=== PATIENT | male | born 1960 | race Caucasian/White ===

== ENCOUNTER 2016-09-28 09:52 | Inpatient (IN) | payer OTHER ==
--- NOTE | 2016-09-17 10:02 | Rehab Joint Replacement Pre-Op ---
Rehab Joint Replacement Pre-Op - Pre-Op Visit Reviewed Items Scheduled for Post Op Visit: Yes Scheduled Post Op Visit Date: 09/28/16 (IP day of surgery and day after schedule , OP PT schedule [facility].) Pre-Op Visit Comment: Pt. lives in a ranch-style home with basement, however, pt. reports he will remain on the main floor for ADLs. Pt. has ~5 steps leading to the first platform and an additional 5 steps leading into the home with handrail on left side when ascending. Pt. wishes to ambulate with his single point cane, however, is considering a front wheeled walker for stability; pt. was instructed to use walker to aid in shower transfer. Pt. has to step over a shower structure measuring ~5 inches vertically before standing in his shower. Pt. has a countertop next to the toilet to aid with transfer, but does not have a raised toilet seat. 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 Pt. has a and three kids at home who are able to provide support. Yuriy Hose/Garment Measurement TKR - Knee High: Yes Yuriy Hose/Garment Measure THR - Thigh High: Yes (11.5 inches ankle circumference ; 16.5 inches calf circumference; 28.25 thigh circumference; 30.25 leg length. Measurements recorded in inches.) Exercise Reviewed: Yes (Pt. instructed to perform ankle pumps, quad sets, glute sets, heel slides, and SLR. Pt. instructed to avoid precautions for posterior approach.) Stair Climbing: Yes (Pt. instructed to ascend and descend steps with front wheeled walker and single point cane, leading with the non-operative LE when ascending and operative LE when descending.) Cane/Walker/Crutch Training: Yes Vend Equipment - Cane or Walker and OT Kit: N/A (Pt. given vendor list for areas supplying DME.) List of Venders in the Area: Yes Shower Chair Transfers: Yes Car Transfers: Yes Bed Transfers: Yes Medical History Forms Issued: No Functional Scale Forms Issued: No
[~2016-09-28 09:52] MED LIST: ACETAMINOPHEN 1000MG/100 ML PREMIX IV ONE; CELECOXIB 100 MG CAPSULE PO ONE; FAMOTIDINE 20MG TABLET PO ONE; MECLIZINE 25 MG TABLET PO ONE; METOCLOPRAMIDE 10 MG TABLET PO ONE; VANCOMYCIN HCL 1,000 MG in 0.9 % SODIUM CHLORIDE 250ML 250 ML IVPB ONE
[2016-09-28] MEDS ORDERED: BUPIVACAINE 0.5% W/EPI MPF 30 ML VIAL IVP ONE ×2 (12:17→14:00)
[2016-09-28] MEDS ORDERED: VANCOMYCIN HCL 1 GM VIAL IVPB ONE ×2 (12:17→14:00)
[2016-09-28] MEDS ORDERED: TRANEXAMIC ACID 1,000 MG/10 ML ML IV ONE ×2 (12:17→14:00)
[2016-09-28] MEDS ORDERED: BUPIVACAINE LIPOSOME 266MG/20ML VIAL IV ONE (12:17)
[2016-09-28 13:04] LABS: ABO GROUP O; ANTIBODY SCREEN NEGATIVE (NEGATIVE); RH TYPE POSITIVE
[2016-09-28] MEDS ORDERED: PROPOFOL 10 MG/ML VIAL IV ONE (14:00)
[2016-09-28] MEDS ORDERED: EPHEDRINE SULFATE 50 MG/ML ML IV ONE (14:00)
[2016-09-28] MEDS ORDERED: MIDAZOLAM HCL 2MG/2ML VIAL IV ONE (14:00)
[2016-09-28] MEDS ORDERED: KETOROLAC 30 MG/ML VIAL IVP ONE (14:00)
[2016-09-28] MEDS ORDERED: FENTANYL PF 100MCG/2ML VIAL IV ONE (14:00)
[2016-09-28] MEDS ORDERED: *PACU ONLY* KETAMINE HCL 10 MG/ML (20ML) VIAL IV ONE (14:00)
[2016-09-28] MEDS ORDERED: HYDROMORPHONE HCL 1 MG/ML CPJ IM PRN (14:24)
[2016-09-28] MEDS ORDERED: MORPHINE SULFATE 5 MG/ML PFS IVP PRN ×4 (14:24)
[2016-09-28] MEDS ORDERED: HYDROCODONE/APAP 7.5/325MG TABLET PO PRN (14:24)
[2016-09-28] MEDS ORDERED: ZOLPIDEM TARTRATE 5 MG TABLET PO PRN (14:24)
[2016-09-28] MEDS ORDERED: DIPHENHYDRAMINE HCL 25 MG CAPSULE PO PRN (14:24)
[2016-09-28] MEDS ORDERED: MAGNESIUM HYDROXIDE 30 ML UDC PO PRN (14:24)
[2016-09-28] MEDS ORDERED: PROMETHAZINE HCL 12.5 MG in 0.9 % SODIUM CHLORIDE 100ML 50 ML IVPB PRN (14:24)
[2016-09-28] MEDS ORDERED: TRAMADOL HCL 50 MG TABLET PO PRN ×2 (14:24)
[2016-09-28] MEDS ORDERED: NALOXONE 0.4 MG/1 ML VIAL IVP PRN (14:24)
[2016-09-28] MEDS ORDERED: HYDROMORPHONE HCL 2 MG/ML VIAL IM PRN (14:24)
[2016-09-28] MEDS ORDERED: DEXTROSE 5 % AND 0.9 % NACL 1,000 ML IV PRN (14:24)
[2016-09-28] MEDS ORDERED: HYDROCODONE/APAP 5/325MG TABLET PO PRN ×2 (14:24)
[2016-09-28] MEDS ORDERED: BISACODYL 10 MG SUPP RC PRN (14:24)
[2016-09-28] MEDS ORDERED: ONDANSETRON HCL IV 4 MG/2 ML VIAL IVP PRN (14:24)
[2016-09-28] MEDS ORDERED: ACETAMINOPHEN W/ CODEINE 300MG/30MG TABLET PO PRN ×2 (14:24)
[2016-09-28] MEDS ORDERED: METOCLOPRAMIDE HCL 10 MG/2 ML VIAL IVP PRN (14:24)
[2016-09-28] MEDS ORDERED: ACETAMINOPHEN 325 MG TAB PO PRN (14:24)
[2016-09-28] MEDS ORDERED: AL HYDROX/MAG HYDROX 30ML UD PO PRN (14:24)
[2016-09-28] MEDS ORDERED: KETOROLAC 30 MG/ML VIAL IVP PRN ×2 (14:24)
[2016-09-28] MEDS ORDERED: ACETAMINOPHEN W/ CODEINE 300MG/60MG TABLET PO PRN ×2 (14:24)
[2016-09-28] MEDS: HYDROCODONE/APAP 7.5/325MG TABLET PO PRN (20:19)
[2016-09-28] MEDS: FERROUS SULFATE 325 MG TAB PO SCH (21:13)
[2016-09-28] MEDS: DOCUSATE SODIUM 100 MG CAPSULE PO SCH (21:13)
[2016-09-28] MEDS: RANITIDINE HCL 150 MG TABLET PO SCH (21:13)
[2016-09-28] MEDS ORDERED: SIMVASTATIN 20 MG TABLET PO SCH (22:00)
[2016-09-29] MEDS: VANCOMYCIN HCL 1 MG in 0.9 % SODIUM CHLORIDE 250ML 250 ML IVPB SCH ×2 (01:19→13:46)
[2016-09-29] MEDS: HYDROCODONE/APAP 7.5/325MG TABLET PO PRN ×2 (04:38→09:36)
[2016-09-29 06:23] LABS: HEMATOCRIT 37.2 % (42.0-52.0); HEMOGLOBIN 12.4 gm/dl (14.0-18.0)
[2016-09-29] MEDS ORDERED: PATIENT OWN MED: RANITIDINE 150 MG PO SCH (07:30)
[2016-09-29] MEDS: DOCUSATE SODIUM 100 MG CAPSULE PO SCH (09:40)
[2016-09-29] MEDS: RANITIDINE HCL 150 MG TABLET PO SCH (09:43)
[2016-09-29] MEDS: FERROUS SULFATE 325 MG TAB PO SCH (09:48)
[2016-09-29] MEDS ORDERED: RIVAROXABAN 10 MG TABLET PO SCH (10:00)
[2016-09-29] MEDS ORDERED: PATIENT OWN MED: LISINOPRIL 10 MG PO SCH (10:00)
[2016-09-29] MEDS ORDERED: CELECOXIB 100 MG CAPSULE PO SCH (10:00)
--- NOTE | 2016-09-29 10:49 | Rehab Evaluation ---
Patient Information - Patient Information Diagnosis: OA with left DUNIA Ordered Treatment: PT Evaluate and Treat Status: Initial Evaluation Surgery: Yes Date of Surgery: 09/28/16 (left DUNIA) Past Medical/Surgical Hx: PAST MEDICAL/SURGICAL HISTORY Past Surgical History left knee scopes x's 3 c scope and EGD PMH - Respiratory Hx Respiratory Disorders No PMH - Cardiovascular Hx Cardiovascular Disorders Yes Hx Hypertension Yes: good control on meds Exercise Tolerance Good PMH - Neuro Hx Neurological Disorders Yes PMH - GI Hx Gastrointestinal Disorders Yes Hx Gastroesophageal Reflux Yes: controlled with meds PMH - Hx Genitourinary Disorders Yes Patient Hx Prostate Problems Yes: enlarged on meds PMH - Endocrine Hx Endocrine Disorders No PMH - Musculoskeletal Hx Musculoskeletal Disorders Yes Hx Arthritis Yes: left hip and back PMH - Psych Hx Psychiatric Problems No PMH - Hematology/Oncology Hx Hematology/Oncology No Disorders Precautions: [place], Fall - Time With Patient Total Time Spent With Patient (Min): 30 Treatment Procedures: Detail (Patient seen in room, sitting up in bed. Prepared new walker for him to take home: FWW set at proper height. Reviewed exercises for hip: heel slides with assist, SLR with assist, quad, glut and hamstring sets, ankle pumps. Patient needed some assist to pivot around out of bed with left LE and assist to gently lower to floor. Sit to stand independently and made sure new walker right height then ambulated WBAT with FWW 50 feet or so, able to walk down 3 steps, back up three steps with FWW folded and rail. Has rail at home and cane to do stairs because has 10 steps at home with split staircase to get into house. Patient ambulated 100 feet further with FWW WBAT then back to room for about 200 feet or more this am.) Subjective Information - Subjective Information Per Patient (Patient lives in ranch style house with and three teen-agers. Retired some years ago and has been involved with sons' sports.) Objective Data - Pain Pain Present: Yes Pain Intensity: 2 Pain Scale Used: Numeric (1 - 10) (2/10 with meds) - Mental Status Patient Orientation: Oriented x3 - Visual Perception Appears within normal limits for therapeutic activities - ROM Within normal limits (except hip left which is impaired a little since surgery: hip flexion 60 degrees, abduction 20 degrees, ER minimal, IR, add and extension neutral. Left knee and ankle WFL) - Strength/Tone Within normal limits (Except left hip 3-/5) - Coordination Appears within normal limits for therapeutic activities - Bed Mobility Needs Assist (Needs assist to lift and let leg down off bed.) - Transfers Independent (Able to sit to stand independently and transfer independently.) - Balance Balance Sitting: Good Balance Standing: Good - Sensation Intact - Gait Detail (Able to ambulate independently with FWW 200 feet or greater.) - Special Tests No Therapy Assessment - Therapy Assessment Detail (Patient doing extremely well so far except needs assist with leg into/ out of bed.) Patient Education - Patient Education Teaching Topic: Equipment Use, Exercise/Activity Response: Return Demonstration (Issued patient FWW for home use and prepared paperwork for patient and doctor's signatures.) Teaching Method: Demonstration Teaching Recipient: Patient Barriers To Learning: None Problem List - Problem List Physical Therapy Problem List: Detail (1. Some weakness left hip 2. Decreased mobility from normal yet. 3. Gait impairment) Goals - Goals Physical Therapy Goals: Patient will be independent with mobility, gait and transfers to be able to transition home. Prognosis - Prognosis Good (Should do well.) Plan - Plan Physical Therapy Plan: Continue PT bid today and if able, can go home day after surgery as has already passed all skills needed to go home. If needed, can stay another night.
--- NOTE | 2016-09-29 10:54 | Rehab Evaluation ---
Patient Information - Patient Information Diagnosis: left total hip arthroplasty Ordered Treatment: OT Evaluate and Treat Status: Initial Evaluation Surgery: Yes Date of Surgery: 09/28/16 History: Detail (Pt admitted on 09/28/16 with h/o hip OA) Past Medical/Surgical Hx: PAST MEDICAL/SURGICAL HISTORY Past Surgical History left knee scopes x's 3 c scope and EGD PMH - Respiratory Hx Respiratory Disorders No PMH - Cardiovascular Hx Cardiovascular Disorders Yes Hx Hypertension Yes: good control on meds Exercise Tolerance Good PMH - Neuro Hx Neurological Disorders Yes PMH - GI Hx Gastrointestinal Disorders Yes Hx Gastroesophageal Reflux Yes: controlled with meds PMH - Hx Genitourinary Disorders Yes Patient Hx Prostate Problems Yes: enlarged on meds PMH - Endocrine Hx Endocrine Disorders No PMH - Musculoskeletal Hx Musculoskeletal Disorders Yes Hx Arthritis Yes: left hip and back PMH - Psych Hx Psychiatric Problems No PMH - Hematology/Oncology Hx Hematology/Oncology No Disorders Premorbid Status: Detail (Pt lives with spouse and 3 sons in a 4 story house, 10 steps and 1 handrailing at the entrance. He has a tub/shower combination, no tub bench. He plans to stand and shower. He has a standard height toilet. He is usually Ind with all ADLs/IADLs but his family will be available to assist as needed.) Precautions: [place], Fall, Other (Total hip replacement precautions) - Time With Patient Total Time Spent With Patient (Min): 25 Treatment Procedures: Detail (OT eval low complexity) Subjective Information - Subjective Information Per Patient Objective Data - Mental Status Patient Orientation: Oriented x3 - Visual Perception Appears within normal limits for therapeutic activities - ROM Within normal limits (Rahul UE AROM WNL per his report) - Strength/Tone Within normal limits (Rahul UE MMT WNL per his report) - Coordination Appears within normal limits for therapeutic activities - ADL's/IADL's Detail (Reviewed DUNIA precautions and ADLs, pt reports he has a air twister winder. Reviewed modified dressing technique with air twister winder, pt verbalizes learning. Discussed sock aid, long shoe horn and elastic shoe laces, pt reports his family will be available to assist with all self cares. Discussed possible need for raised toilet seat/commode. Pt to look into this.) Therapy Assessment - Therapy Assessment Detail (Pt has air twister winder and has verbalized understanding of modified dressing technique. He does not feel he needs additional equipment. Pt was educated and verbalized learning of hip precautions and possible need for raised toilet seat/commode.) Problem List - Problem List Occupational Therapy Problem List: Detail (No current OT problems identified.) Goals - Goals Occupational Therapy Goals: No current OT goals identified. Prognosis - Prognosis Good Plan - Plan Occupational Therapy Plan: No further OT needed at this time. Thank you for this referral.
--- NOTE | 2016-09-29 14:21 | Physical Therapy Tx Note ---
Physical Therapy Tx Note - Treatment Note Tolerated: Good (Patient doing extremely well, having last IV of antibiotics then discharged to home. Able to stand up from bed with less assist than this am and ambulated with FWW safely. Understands precautions and exercises.) Total Time Spent With Patient: 15 Physical Therapy Tx Note: Detail (Patient seen in room, able to move supine to sit with very little assist with left LE then sit to stand independently, ambulated with FWW about 225 feet total then back to chair to sit up and finish IV. Able to perform hip exercises well (before gait) in bed with assist yet with SLR but able to do heel slide independently. Isometrics are going well with good muscle contraction. Understands precautions well. Left patient sitting in chair with tray table close and call light close. Marked walker with name label so discharge staff knows that it is his walker.) Physical Therapy Problem List: Detail (1. Some weakness left hip 2. Decreased mobility from normal yet. 3. Gait impairment) Physical Therapy Goals: Patient will be independent with mobility, gait and transfers to be able to transition home. Prognosis: Good (Patient ready for discharge home after finishes IV and actually plans to go watch son play baseball a little before home.) Physical Therapy Plan: Continue PT bid today and if able, can go home day after surgery as has already passed all skills needed to go home. If needed, can stay another night.
[2016-09-29] MEDS ORDERED: PATIENT OWN MED: TAMSULOSIN 0.4 MG PO SCH (17:30)
[2016-09-29] MEDS ORDERED: PATIENT OWN MED: SIMVASTATIN 20 MG PO SCH (22:00)
--- NOTE | 2016-09-30 11:10 | Operative Note ---
DATE OF SURGERY: 09/28/2016 PREOPERATIVE DIAGNOSIS: Left hip severe end-stage [id number] arthrosis. POSTOPERATIVE DIAGNOSIS: Left hip severe end-stage [id number] arthrosis. PROCEDURE: Left total hip arthroplasty. Surgeon: Jareth Stuart M.D. Anesthesia: Spinal. Anesthesia Provider: AARON Montes. COMPLICATIONS: None. Blood Loss: 150 mL. OPERATIVE FINDINGS: Severe bone on bone hip arthrosis with massive osteophytes around the acetabulum. COMPONENTS PLACED: [employer] Synergy size 13 total hip arthroplasty system, size 13 high-offset with a 32 x 8 + 8 mm Oxinium femoral head component, a 52 acetabular shell component with 3 screw holes, 1 acetabular screws, 2 screw caps, Century threaded screw cap, and a 35 degree high crosslinked polyethylene liner. Indications for Operation: This is a 55-year-old male who has had persistent pain, dysfunction in his hip for several years, failed nonoperative treatment. Scheduled for hip replacement. I explained all risks, benefits of surgery and details of diagnosis and procedures equivalent to infection, nerve injury, vessel injury, persistent pain, persistent numbness and tingling in his left hip, periprosthetic fracture, need for resection arthroplasty, component defects, nerve injury, vessel injury, blood clot and need for anticoagulation to prevent blood clots, risks associated with these medications and need for other procedures and limb-length discrepancy. All his questions were answered. The and course were outlined and he agreed to proceed. PROCEDURE: Patient brought into the OR, placed in the right lateral decubitus position and his left hip and lower extremity were prepped and draped in the sterile fashion. The hip was prepped using ChloraPrep and it was draped. Intraoperative timeout was performed. Next a posterior mini incision was marked over the hip and it was infiltrated with 0.5% Marcaine with epi. Skin and subcutaneous tissue were dissected down to the gluteal fascia. Gluteal fascia was split longitudinally. Subgluteal plane was bluntly dissected and a self-retainer was brought in identifying the sciatic nerve, carefully protected at all times. Next then took off the short external rotators, tagged them with #2 Vicryl and then we released the capsule along the neck of the femoral head and the acetabular rim and released medially and laterally and dislocated the femoral head. He had a massive femoral head, 50 mm, with large osteophytes. There was absolutely no cartilage around the femoral head. Next we resected about 1.5 cm above the lesser trochanter. We then inserted the box osteotome, then inserted the starting canal finder and then the 8, 9, 10, 11 to a 12 to a 13. Again it was a tight fit there, and went back down to an 11 broach. We broached the calcar plane and a 12 calcar plane and then a 13 and seated it slightly inside calcar cut line. Had a good fit there. Next attention was turned to the acetabulum. Retracted anteriorly and then placed inferior acetabular retractor, Abbie, superiorly. Had good exposure to the acetabulum. Removed any excess labrum, capsule tissue and ligament and then irrigated and then began reaming with a 44 mm. We medialized and working in 1 mm increments up to a size 51 in 45 degrees inclination, 20 degrees anteversion and had a good peripheral and central fit. We trialed a 52 and had a nice fit. We then opened up the real 52, changed gloves, irrigated the acetabulum copiously and packed down the real 3-hole acetabular shell with our helicopter guide in approximately 45 degrees inclination, 20 degrees anteversion until I had a seated flush medially. Next we drilled the posterior, central, superior quadrant screw hole and we inserted a 30 mm screw there and had a good purchase. Next then placed a trial polyethylene liner and did a trial reduction with combination the size of neck lengths and head lengths. The best combination, range of motion and stability was with a high-offset, +8 mm femoral head component. This allowed for good abductor tensioning and flexion to 90, to 80 before the hip even attempted to be dislocated and then stability with extension, internal and external rotation. Next then removed all trial components, irrigated the acetabulum and femoral canal copiously and placed the 2 screw caps, Century threaded screw cap, and let them pack down the real polyethylene liner with the francis in the posterior-superior quadrant, 35 degree francis. Next irrigated the femoral canal and packed down the real femoral stem getting 15 degrees of anteversion until the bead line was flush with our medial calcar and down in normal position. Next then cleaned and dried and packed down the real femoral head and then re-reduced the hip; found range of motion and stability the same. Next we then irrigated the wound copiously. Repaired the short external rotators to the abductors using #2 Vicryl stitch. Next we injected around deep to the capsule, around the external rotators that were repaired and deep gluteal muscle and fascia with several sticks of needling with 0.5% Marcaine epi, 2 g tranexamic acid and Exparel and deep subcutaneous tissue and gluteal muscle around the tighter periphery of the wound. Next we irrigated copiously and then closed the gluteal fascia with running #2 Quill suture, irrigated and closed the skin with 2-0 Vicryl and running 2-0 Quill. Injected the wound again with 0.5% Marcaine with epi around the periphery subcu. Intraoperative x-ray revealed good fit and orientation of components. Abduction pillow was placed. Sterile dressing. The patient tolerated the procedures well. No intraoperative complications. All sponge and counts correct. Recovery stable. Neuro is intact. [facility]. Likely discharge tomorrow home. Jareth Stuart MD CC: Mirtha Luo M.D. DEMIAN
--- NOTE | 2016-10-06 08:13 | RADIOLOGY REPORT ---
EXAM: LEFT HIP, SINGLE PORTABLE VIEW HISTORY: POSTOP. TECHNIQUE: A single portable view of the left hip was obtained. Comparison: None. FINDINGS: Status post total left hip arthroplasty. Minimal soft tissue gas is likely postoperative. No gross complicating process. Some equivocal lateral placement of the femoral head in the acetabular component. IMPRESSION: STATUS POST TOTAL LEFT HIP ARTHROPLASTY. JOB NUMBER: [id number] MTDD
== END 2016-09-29 15:45 | disposition home health service (06) | DRG 470 ==
LOC: MEDSURG 10:47
PROVIDERS: ADMIT Orthopaedic Surgery; ATTEND Orthopaedic Surgery
PROC: 0SRB04A Replacement of Left Hip Joint with Ceramic on Polyethylene Synthetic Substitute, Uncemented, Open Approach (ICD-10-PCS; principal; 2016-09-28 13:00)
DX: M16.12 Unilateral primary osteoarthritis, left hip (principal); I10 Essential (primary) hypertension; E78.00 Pure hypercholesterolemia, unspecified
CPT/HCPCS: 85014; 85018; 86850; 86900; 86901; 94760; 97116; 97165; C1776; J1885; J7042; J7050

== ENCOUNTER 2016-11-23 10:50 | Day surgery (SDC) | payer OTHER ==
[~2016-11-23 10:50] MED LIST changes: +ACETAMINOPHEN 1,000 MG/100 ML BTL IV ONE; -ACETAMINOPHEN 1000MG/100 ML PREMIX IV ONE; +BUPIVACAINE 0.5% W/EPI MPF 30 ML VIAL IVP ONE; +BUPIVACAINE LIPOSOME 266MG/20ML VIAL IV ONE; -CELECOXIB 100 MG CAPSULE PO ONE; -MECLIZINE 25 MG TABLET PO ONE; +SCOPOLAMINE 1 PATCH TDSY TD ONE; +TRANEXAMIC ACID 1,000 MG/10 ML ML IV ONE
[2016-11-23 11:41] LABS: ABO GROUP O; ANTIBODY SCREEN NEGATIVE (NEGATIVE); RH TYPE POSITIVE
[2016-11-23] MEDS ORDERED: ACETAMINOPHEN W/ CODEINE 300MG/30MG TABLET PO PRN ×2 (13:21)
[2016-11-23] MEDS ORDERED: HYDROCODONE/APAP 5/325MG TABLET PO PRN ×2 (13:21)
[2016-11-23] MEDS ORDERED: HYDROCODONE/APAP 7.5/325MG TABLET PO PRN ×2 (13:21)
[2016-11-23] MEDS ORDERED: ACETAMINOPHEN W/ CODEINE 300MG/60MG TABLET PO PRN ×2 (13:21)
[2016-11-23] MEDS ORDERED: MAGNESIUM HYDROXIDE 30 ML UDC PO PRN (13:21)
[2016-11-23] MEDS ORDERED: BISACODYL 10 MG SUPP RC PRN (13:21)
[2016-11-23] MEDS ORDERED: TRAMADOL HCL 50 MG TABLET PO PRN ×2 (13:21)
[2016-11-23] MEDS ORDERED: DEXTROSE 5 % AND 0.9 % NACL 1,000 ML IV PRN (13:21)
[2016-11-23] MEDS ORDERED: ACETAMINOPHEN 325 MG TAB PO PRN (13:21)
[2016-11-23] MEDS ORDERED: NALOXONE 0.4 MG/1 ML VIAL IVP PRN (13:21)
[2016-11-23] MEDS ORDERED: DIPHENHYDRAMINE HCL 25 MG CAPSULE PO PRN (13:21)
[2016-11-23] MEDS ORDERED: PROMETHAZINE HCL 12.5 MG in 0.9 % SODIUM CHLORIDE 100ML 50 ML IVPB PRN (13:21)
[2016-11-23] MEDS ORDERED: KETOROLAC 30 MG/ML VIAL IVP PRN ×2 (13:21)
[2016-11-23] MEDS ORDERED: AL HYDROX/MAG HYDROX 30ML UD PO PRN (13:21)
[2016-11-23] MEDS ORDERED: PROMETHAZINE HCL 25 MG TABLET PO PRN (13:36)
[2016-11-23] MEDS ORDERED: METOCLOPRAMIDE 10 MG TABLET PO PRN (13:45)
[2016-11-23] MEDS ORDERED: ONDANSETRON 4 MG ODT TABLET SL PRN (13:45)
[2016-11-23] MEDS ORDERED: PROPOFOL 10 MG/ML VIAL IV ONE (14:00)
[2016-11-23] MEDS ORDERED: HYDROMORPHONE HCL 2 MG/ML VIAL IV ONE (14:00)
[2016-11-23] MEDS ORDERED: EPHEDRINE SULFATE 50 MG/ML ML IV ONE (14:00)
[2016-11-23] MEDS ORDERED: MIDAZOLAM HCL 2MG/2ML VIAL IV ONE (14:00)
[2016-11-23] MEDS ORDERED: FENTANYL PF 100MCG/2ML VIAL IV ONE (14:00)
[2016-11-23] MEDS ORDERED: TRANEXAMIC ACID 1,000 MG/10 ML ML IV ONE (14:00)
[2016-11-23] MEDS ORDERED: *PACU ONLY* KETAMINE HCL 10 MG/ML (20ML) VIAL IV ONE (14:00)
[2016-11-23] MEDS ORDERED: KETOROLAC 30 MG/ML VIAL IVP ONE (14:00)
[2016-11-23] MEDS ORDERED: BUPIVACAINE 0.5% W/EPI MPF 30 ML VIAL IVP ONE (14:00)
[2016-11-23] MEDS ORDERED: CELECOXIB 100 MG CAPSULE PO ONE (14:06)
[2016-11-23] MEDS ORDERED: VANCOMYCIN HCL 500 MG in 0.9 % SODIUM CHLORIDE 100ML 100 ML IVPB ONE (16:00)
--- NOTE | 2016-11-23 17:38 | Rehab Evaluation ---
Patient Information - Patient Information Diagnosis: R hip total arthroplasty Ordered Treatment: OT Evaluate and Treat Status: Initial Evaluation Surgery: Yes Date of Surgery: 11/23/16 History: Detail Past Medical/Surgical Hx: PAST MEDICAL/SURGICAL HISTORY Past Surgical History left knee scopes x's 3; c scope and EGD; left total hip replacement 09/28/16. PMH - Respiratory Hx Respiratory Disorders No PMH - Cardiovascular Hx Cardiovascular Disorders Yes Hx Hypertension Yes: good control on meds Exercise Tolerance Good PMH - Neuro Hx Neurological Disorders No PMH - GI Hx Gastrointestinal Disorders Yes Hx Gastroesophageal Reflux Yes: controlled with meds Hx Weight Loss/Weight Gain Yes: wt loss recently since surgery PMH - Hx Genitourinary Disorders Yes Hx Prostate Problems Yes: enlarged on meds PMH - Endocrine Hx Endocrine Disorders No PMH - Musculoskeletal Hx Musculoskeletal Disorders Yes Hx Arthritis Yes: back & right hip PMH - Psych Hx Psychiatric Problems No PMH - Hematology/Oncology Hx Hematology/Oncology No Disorders Premorbid Status: Detail (Ind with all I/ADL's.) Social History: Detail (Pt. lives with spouse and 3 sons in a 4 story house, 10 steps with 1 handrail at the entrance. Pt's family will be assisting him with ADL's at home during recovery, per pt. and 's report.) Precautions: [place], Fall - Time With Patient Total Time Spent With Patient (Min): 20 Objective Data - Mental Status Patient Orientation: Oriented x3 (Pt. did report feeling slightly "out of it" due to being on narcotics.) - Visual Perception Appears within normal limits for therapeutic activities - ROM Within normal limits (BUE) - Strength/Tone Within normal limits (BUE) - Coordination Appears within normal limits for therapeutic activities - Bed Mobility Independent - Transfers Independent - Balance Balance Sitting: Good Balance Standing: Good - Sensation Intact (BUE) - ADL's/IADL's Detail (Pt. reports having a tub/shower combination at home (no tub bench/chair) , but plans to mechanical maintenance engineer shower. Pt. has standard toilet seat. Pt. plans to wear slip-on shoes and have his /family assist with dressing or other ADL's as needed during recovery. Educ. provided to review modified dressing techniques while adhering to precautions, and available AE. Pt. verbalized understanding and voiced he has everything he needs at home. Pt. verbailized hip precautions, but then needed a reminder on how precautions apply to dressing.) Therapy Assessment - Therapy Assessment Detail (Pt. educ. was provided and he verbalized understanding of hip precautions, dressing techniques, and available AE if needed, but reports he has everything he needs at home. Pt. has a positive support system; family will assist with ADL's as needed. Pt.'s cognition may be slightly effected during the time of OT eval due to post-op pain medications, however, was present when educ. was provided. Pt. has home care services arranged for tonight and tomorrow. Pt. may benefit from home OT eval to maximize safety during transition to home environment. No further hospital OT services recommended at this time.) Plan - Plan Occupational Therapy Plan: No further hospital OT services recommended at this time. Thank you for this referral.
--- NOTE | 2016-11-23 17:42 | Rehab Evaluation ---
Patient Information - Patient Information Diagnosis: R total hip arthroplasty Ordered Treatment: PT Evaluate and Treat Status: Initial Evaluation Surgery: Yes (11/23/16) Date of Surgery: 11/23/16 (R DUNIA) History: Detail (Pt experienced progressive degeneration of R hip, underwent R DUNIA this afternoon. Had L DUNIA 09/28/16 with a good outcome.) Past Med/Rylee Hx Detail: Detail Past Medical/Surgical Hx: PAST MEDICAL/SURGICAL HISTORY Past Surgical History left knee scopes x's 3; c scope and EGD; left total hip replacement 09/28/16. PMH - Respiratory Hx Respiratory Disorders No PMH - Cardiovascular Hx Cardiovascular Disorders Yes Hx Hypertension Yes: good control on meds Exercise Tolerance Good PMH - Neuro Hx Neurological Disorders No PMH - GI Hx Gastrointestinal Disorders Yes Hx Gastroesophageal Reflux Yes: controlled with meds Hx Weight Loss/Weight Gain Yes: wt loss recently since surgery PMH - Hx Genitourinary Disorders Yes Hx Prostate Problems Yes: enlarged on meds PMH - Endocrine Hx Endocrine Disorders No PMH - Musculoskeletal Hx Musculoskeletal Disorders Yes Hx Arthritis Yes: back & right hip PMH - Psych Hx Psychiatric Problems No PMH - Hematology/Oncology Hx Hematology/Oncology No Disorders Premorbid Status: Detail (Pt was ambulating w/o assistive device shortly after undergoing L DUNIA 09/28/16, over community distances/surfaces and ascending/ descending stairs.) Social History: Detail (Lives w/ and three children in single story ranch home w/basement, has 5 steps to a platform, then another five steps to enter the house. Has single handrail and plans to use walker or cane to navigate stairs. Coaches and watches baseball, has games currently scheduled.) Precautions: Gibson, Fall - Time With Patient Total Time Spent With Patient (Min): 50 Treatment Procedures: Detail (PT Evaluation) Subjective Information - Subjective Information Per Patient (Pt reports mild grogginess from anesthesia, and some soreness but no nausea. Actively moving LEs and has full sensation to B LEs.) Objective Data - Pain Pain Present: Yes Pain Intensity: 5 Pain Scale Used: Numeric (1 - 10) - Mental Status Patient Orientation: Oriented x3 - Visual Perception Appears within normal limits for therapeutic activities - ROM Not within normal limits (Within DUNIA precautions for posterior approach R LE. WNL at L hip, knee, ankle, R knee and ankle.) - Strength/Tone Not within normal limits (Fair to good strength in R proximal LE based on observation of mobility and gait. Good strength in L LE.) - Coordination Appears within normal limits for therapeutic activities - Bed Mobility Independent (Verbally reminded of DUNIA precautions for posterior approach. Independent getting out of bed and back into bed.) - Transfers Independent (Sit to stand at walker, return to sitting at edge of bed.) - Balance Balance Sitting: Good Balance Standing: Good - Sensation Intact - Gait Detail (Ambulated WBAT R LE w/front-wheeled walker from bedside to end of med- surg hallway, to stairwell, ascended/descended three stairs w/front wheeled walker and handrail, VCs and CGA/SBA, then ambulated to [facility] and back to bedside (about 258 feet total).) Therapy Assessment - Therapy Assessment Detail (Pt is independent w/bed mobility, transfers, and gait WBAT R LE w/front wheeled walker on level surfaces and on stairs. He is independent w/beginning home program, with which he is familiar from previous course of therapy.) Patient Education - Patient Education Teaching Topic: Equipment Use, Exercise/Activity, Precautions, Signs/Symptoms ( Discussed use of JP hose and role in DVT prevention, as well as use of aspirin and increasing activity.) Response: Verbalize Understanding Teaching Method: Discussion Teaching Recipient: Patient, Family Barriers To Learning: None Problem List - Problem List Physical Therapy Problem List: Detail (None.) Goals - Goals Physical Therapy Goals: No goals formulated; patient is independent w/bed mobility, transfers, gait w/front wheeled walker on level surfaces and stairs. Prognosis - Prognosis Good Plan - Plan Physical Therapy Plan: Pt has met all inpatient physical therapy objectives. He expects to have home physical therapy for a few sessions to progress HEP and ensure safety w/mobility at home.
[2016-11-23] MEDS ORDERED: DOCUSATE SODIUM 100 MG CAPSULE PO SCH (22:00)
--- NOTE | 2016-11-25 15:25 | Operative Note ---
DATE OF SURGERY: 11/23/2016 PREOPERATIVE DIAGNOSIS: Right hip end-stage arthrosis. POSTOPERATIVE DIAGNOSIS: Right hip end-stage arthrosis. OPERATION: Right total hip arthroplasty. Surgeon: Jareth Stuart MD Anesthesia: Spinal. COMPLICATIONS: None. Blood Loss: 200 mL OPERATIVE FINDINGS: [id number] hip arthrosis, large osteophytes peripherally. COMPONENTS PLACED: Press-Fit proximally porous coated [employer] Synergy stem, high offset size 13 with a 32 plus 8 mm Oxinium femoral head component, a 52 mm Reflection acetabular shell with 3 screw holes, one screw cap, centrally- threaded screw cap, and a 35 degree high cross-linked polyethylene liner. Indication: This is a 56-year-old male who has had persistent pain and dysfunction in both hips for several years. Failed nonoperative treatment. He has had left hip arthroplasty done a few months ago and now is scheduled for right. I explained all risks and benefits in detail for the diagnosis and procedure including but not limited to infection, nerve injury, vessel injury, persistent pain, stiffness, numbness, tingling in his hip, limb length discrepancy, periprosthetic fracture, need for resection arthroplasty if components are infected or loosen, blood clot, and need for further procedures, need for anticoagulation to prevent blood clots and risks associated with these medications. All his questions were answered. The course was outlined. He agreed to proceed. PROCEDURE: The patient brought to the OR and placed in the left lateral decubitus position. The right hip and lower extremity prepped and draped in sterile fashion. Prepped using Chloraprep and draped. A general timeeout was performed. Next, a posterior approach was marked over the gluteal area. It was infiltrated with 0.5% Marcaine with epi. Skin and subcutaneous dissected down to gluteal fascia. Gluteal fascia split longitudinally. The subgluteal plane was bluntly dissected. Self retainer was brought in. We identified the sciatic nerve with care to protect at all times. Took out the short external rotators, tagged them with #2 Vicryl, incised the capsule, and then dislocated the femoral head. It was a massive femoral head, massive cam osteophytes, periphery with chondromalacia. Then inserted the box osteotome and then inserted the reamer. Reamed in 1 mm increments up to size 13, same as pre-contralateral side, then broached 11 calcar plane on a 12 and then a 13 done for femoral preparation. Attention to the acetabulum. Released the anterior capsule. Placed a cobra retractor there to retract the proximal femur anteriorly. Placed inferior acetabular retractor. Removed ligamentum teres. Removed some of the layering caps around the periphery until I had adequate exposure. Next, we started reaming with a 4 to 5 mm reamer working in 1 mm increments and 45 degrees inclination and 20 degrees anteverted until we reamed up to a size 51. We trialed a 52, again had a nice fit, again the same as contralateral size. It was down medially. Those sizes were used. We irrigated copiously. Then impacted down the real 3-hole acetabular shell component using a helicopter guide in 45 degrees inclination and 20 degrees anteversion until it was flush with the medial wall. Next, we drilled a posterior central superior quadrant screw hole and we inserted the 40 mm screw. We had a good purchase. We then placed a trial liner and then did a trial reduction. Best combination range of motion, stability was with a 35 degree hooded liner. Best combination range of motion stability was with a plus 32 plus 8 mm femoral head component that allowed for reflection 90 and rotation 80 for the hip dislocated symmetric leg lengths and stability with extension and external rotation. Next, we removed all trial components, irrigated the acetabulum and femoral canal copiously, and then placed a center-threaded screw cap and 2 other caps in the screw holes and then impacted on the real poly liner with the francis in posterior quadrant. Verified it was locked down. Next, irrigated the femoral canal again and impacted down the real femoral stem in 15 degrees of anteversion until the bead line was flush with the calcar. We then cleaned and dried the trunnion and packed down the real femoral head component, reduced the hip and found that the range of motion was the same. Next, we irrigated copiously and then we injected the gluteal and pericapsular with our local mixture of 0.5% Marcaine with epi, 2 g tranexamic acid, and Exparel from deep to superficial gluteal and subcutaneous. Next, we repaired the short external rotators to the abductors and #2 Vicryl. Irrigated again, closed with 2-0 fascial running #2 Quill. Next, irrigated again and closed the skin with 2-0 Vicryl and edilberto. Sterile dressing applied. Abduction pillow. Patient tolerated the procedure well. No intraoperative complications. All sponge and needle counts correct. Recovery room stable. Can be discharged as an outpatient with outpatient total joint program. He will have [facility] and nursing immediately today. It will be waiting for him at home on discharge and he will follow up in 2 weeks. DEMIAN
== END 2016-11-23 19:08 | disposition home health service (06) ==
LOC: SUR 10:50 → MEDSURG 15:53 → SUR 19:08
PROVIDERS: ATTEND Orthopaedic Surgery
DX: M16.11 Unilateral primary osteoarthritis, right hip (principal); E78.00 Pure hypercholesterolemia, unspecified; I10 Essential (primary) hypertension
CPT/HCPCS: 27130; 01214; 86900; 86901; 86850; J1885; J3370; J3010; J1170; C9290; J3490; 97165; J7042; J7050